=== PATIENT | female | born 1980 | race African-American/Black ===

== ENCOUNTER 2017-05-09 20:07 | Emergency (ER) | payer OTHER ==
[~2017-05-09] VITALS: Ht 170.2 cm; Wt 64.4 kg
[2017-05-09] MEDS ORDERED: PROVENTIL HFA6.7 G1 INH (21:33)
[2017-05-09] MEDS ORDERED: PREDNISONE 20 M20 MG PO (21:33)
[2017-05-09 21:48] VITALS: BP 132/81
== END 2017-05-09 21:49 | disposition home or self-care (01) ==
LOC: ER 20:07
DX: J45.901 Unspecified asthma with (acute) exacerbation (principal); F17.210 Nicotine dependence, cigarettes, uncomplicated; F10.99 Alcohol use, unspecified with unspecified alcohol-induced disorder